=== PATIENT | female | born 1985 | race Two or more races ===

== ENCOUNTER 2020-01-24 20:09 | Emergency (ER) | payer MEDICAID, OTHER ==
[~2020-01-24] VITALS: Ht 154.9 cm; Wt 70.3 kg
[2020-01-25 02:30] VITALS: BP 116/65
[2020-01-25] MEDS ORDERED: methylPREDNISolone SOD SUCC 125 MG/2 ML VL IM ONE (03:15)
== END 2020-01-25 04:14 | disposition home or self-care (01) ==
LOC: ER 20:11
DX: R21 Rash and other nonspecific skin eruption (principal); L29.9 Pruritus, unspecified; T78.1XXA Other adverse food reactions, not elsewhere classified, initial encounter; Y92.89 Other specified places as the place of occurrence of the external cause
CPT/HCPCS: 96372; 99283; J2930